=== PATIENT | male | born 1925 | race Caucasian/White ===

== ENCOUNTER → 2016-12-10 | Outpatient (CLI) | payer MEDICARE, BC ==
[~2016-12-10] MED LIST: ALLOPURINOL100 MG PO; ANTIVERT 25MG25 MG PO; ASPIR-LOW81 MG PO; ASPIRIN 81M81 MG/TA2 PO; AVAPRO TAB150 MG/TAB PO; BETIMOL 0.5% OPH5 ML OD; CARAFATE 1GM1 G PO; CARAFATE S1 GM/10 ML PO; CEFTIN500 MG PO; CEPHALEXIN500 M1 PO; CLARITIN 1010 MG/TAB PO; COZAAR 25MG25 MG/TAB PO; COZAAR50 MG PO; ELIPHOS667 MG PO; FEROSUL325 MG PO; FISH OIL1 IU PO; FLAXSEED OIL1 CAP PO; FLOMAX 0.40.4 MG/CAP PO; FLOMAX0.4 MG PO; HUMULIN N 10100 U/ML SC; HUMULIN N 10100 U/ML SQ; HUMULIN R 10100 U/ML SC; HUMULIN R100 U/ML SC; INSULIN N (N100 U/ML SC; INSULIN N (N100 U/ML SQ; INSULIN R (N100 U/ML SC; INSULIN R (N100 U/ML SQ; INSULIN STAN U IJ; LASIX 20MG TABL20 MG PO; LASIX 40MG TABL40 MG PO; LEVAQUIN 5500 MG/TA1 PO; LEVOTHYROXIN0.175 MG PO; LOPRESSOR 225 MG/TAB PO; LUTEIN20 M1 PO; LUTEIN20 MG PO; NEUTRA-PHOS1 PDR PO; NEXIUM 40MG40 MG PO; NITROSTAT0.4 MG/TAB SL; NORCO 325 MG-51 TAB PO; NOVOLIN N100 U/ML SC; NOVOLIN R100 U/ML SC; NOVOLIN R100 U/ML SQ; PERCOCET 5/321 UDTAB PO; PHOS LO PO; PHOSLO PO; PHOSLO667 MG PO; PLAVIX 75MG TAB75 MG PO; PRIL40 PO; PRILOSEC40 MG PO; PROSCAR 5MG5 MG PO; PROTONIX 40MG T40 MG PO; REGLAN 5MG T5 MG/TAB PO; SYNTHROID0.175 MG PO; TOPROL XL 25MG25 MG PO; TOPROL XL50 MG PO; VITAMIN C500 MG PO; ZANTAC 150MG T150 MG PO; ZOFRAN 4MG T4 MG/TAB PO; ZYLOPRIM 100MG100 MG PO; [UNRECOGNIZED DRUG - OTHER] IJ; [UNRECOGNIZED DRUG - OTHER] PO; [UNRECOGNIZED DRUG - OTHER] PO
== END ==
LOC: ZCOL.LAB 12:07
DX: M25.471 Effusion, right ankle (principal); M25.571 Pain in right ankle and joints of right foot